=== PATIENT | female | born 1960 | race Caucasian/White ===

== ENCOUNTER 2017-08-19 18:00 | Emergency (ER) | payer OTHER, MEDICARE ==
[~2017-08-19 18:00] MED LIST: CHOLESTEROL MED; CITA20 PO; DIAZ5 PO; HYDR10SO PO; LEVO50TA4 PO; SOMA350T PO; TEMA15 PO
[2017-08-19 18:16] VITALS: BP 183/81; PULSE 87; RESP 18; TEMP 97.9; O2SAT 95
[2017-08-19] MEDS ORDERED: TRAM-462 PO (18:43)
[2017-08-19] MEDS ORDERED: CELE20TA PO (18:43)
[2017-08-19] MEDS ORDERED: SIMV20TA PO (18:43)
[2017-08-19] MEDS ORDERED: OXYC-103 PO (18:43)
[2017-08-19] MEDS ORDERED: METF500T4 PO (18:43)
[2017-08-19] MEDS ORDERED: LISI-519 PO (18:43)
[2017-08-19] MEDS ORDERED: LOMO2.5T PO (18:43)
[2017-08-19] MEDS ORDERED: KETOROLAC TROMETHAMINE 60 MG/2 ML (IM) VIAL IM ONE (18:45)
[2017-08-19] MEDS ORDERED: ORPHENADRINE INJ 60 MG/2 ML AMP IM ONE (18:45)
--- NOTE | 2017-08-19 19:25 | PD ---
HPI Chief Complaint: Pain: Acute or Chronic Time Seen by Provider: 18:35 Travel History International Travel<30 days: No Contact w/Intl Traveler<30days: No Traveled to known affect area: No History of Present Illness HPI 57-year-old female here with chief complaint of acute on chronic low back pain. Patient is reporting that she has chronic low back pain and progressively over the last several months pain has increased. She reports that she had an MRI done outpatient on . She reports she has tramadol, OxyContin, Soma but she has not been taking them because her not working for her pain. she denies injury. She denies fever, incontinence, saddle anesthesia, paresthesia or weakness in extremities. Pain severity 6/10. Pain is constant. It aggravated by movement and slightly relieved with rest. PFSH Past Medical History Arthritis: No Asthma: No Autoimmune Disease: No Blood Disorders: No Anxiety: Yes Depression: Yes Heart Rhythm Problems: No Cancer: Yes (SKIN) Cardiovascular Problems: No High Cholesterol: No Chemotherapy: No Chest Pain: No Congestive Heart Failure: No COPD: No Cerebrovascular Accident: No Diabetes: No Diminished Hearing: No Endocrine: No Gastrointestinal Disorders: No Genitourinary: Yes (INCONTINENT) Headaches: No Hepatitis: No Hiatal Hernia: No Immune Disorder: No Musculoskeletal: Yes (OSTEOMYLITIS, MRSA COCCYX) Neurologic: No Psychiatric: Yes Reproductive: No Respiratory: No Immunizations Current: Yes Migraines: No Myocardial Infarction: No Radiation Therapy: No Seizures: No Sickle Cell Disease: No Sleep Apnea: No Thyroid Disease: Yes Tetanus Vaccination: Unknown Influenza Vaccination: No ?: Not Menopausal: Yes : 0 Past Surgical History Abdominal Surgery: No AICD: No Arteriovenous Shunt: No Body Medical Devices: LUMBAR SACRAL HARDWARE Cardiac Surgery: No Ear Surgery: No Endocrine Surgery: No Eye Surgery: No Genitourinary Surgery: Yes (KIDNEY STONES) Gynecologic Surgery: Yes (LAPAROSCOPY) Insulin Pump: No Joint Replacement: No Oral Surgery: No Pacemaker: No Thoracic Surgery: No Tonsillectomy: Yes Other Surgery: Yes (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) Social History Alcohol Use: No Tobacco Use: No Substance Use: No Allergies-Medications (Allergen,Severity, Reaction): Coded Allergies: penicillin G (Unverified Allergy, Severe, Anaphylaxis, 08/19/17) strawberry (Unverified Allergy, Severe, Anaphylaxis, 08/19/17) tizanidine (Unverified Allergy, Severe, STOPPED BREATHING, 08/19/17) Reported Meds & Prescriptions Reported Meds & Active Scripts Active Reported Tramadol ER 24 HR (Tramadol HCl) 100 Mg [place] 150 Mg PO DAILY Oxycontin (Oxycodone HCl) 10 Mg Tab 10 Mg PO Q8HR Metformin ER (Metformin HCl) 500 Mg [place] 500 Mg PO BID With evening meal Simvastatin 20 Mg Tab 20 Mg PO DAILY Lisinopril 5 Mg Tab 5 Mg PO BID Lomotil (Diphenoxylate-Atropine) 2.5-0.025 Mg Tab 2 Tab PO Q6H PRN Celexa (Citalopram Hydrobromide) 20 Mg Tab 20 Mg PO DAILY [Cholesterol Med] Review of Systems Except as stated in HPI: all other systems reviewed are Neg Physical Exam Narrative GENERAL: Alert well-appearing female no acute distress. SKIN: Warm and dry. HEAD: Atraumatic. Normocephalic. EYES: Pupils equal and round. No scleral icterus. No injection or drainage. ENT: No nasal bleeding or discharge. Mucous membranes pink and moist. NECK: Trachea midline. No JVD. CARDIOVASCULAR: Regular rate and rhythm. RESPIRATORY: No accessory muscle use. Clear to auscultation. Breath sounds equal bilaterally. GASTROINTESTINAL: Abdomen soft, non-tender, nondistended. Hepatic and splenic margins not palpable. MUSCULOSKELETAL: Extremities without clubbing, cyanosis, or edema. No obvious deformities. BACK: No CVA tenderness. No rash. generalized tenderness to the lumbar spine region. NEUROLOGICAL: Awake and alert. No obvious cranial nerve deficits. Motor grossly within normal limits. Five out of 5 muscle strength in the arms and legs. dorsiflex & plantar flex intact. 2+ DTR. PSYCHIATRIC: Appropriate mood and affect; insight and judgment normal. Data Data Last Documented VS Orders Orders Ketorolac Inj (Toradol Inj) (08/19/17 18:45) Orphenadrine Inj (Norflex Inj) (08/19/17 18:45) MDM Medical Decision Making Medical Screen Exam Complete: Yes Emergency Medical Condition: Yes Differential Diagnosis Acute on chronic low back pain, lumbar strain, herniated disc Narrative Course 57-year-old female here with chief complaint of acute on chronic low back pain. Patient is reporting that she has chronic low back pain and progressively over the last several months pain has increased. She reports that she had an MRI done outpatient on . She reports she has tramadol, OxyContin, Soma but she has not been taking them because her not working for her pain. She has a normal neurologic exam. She is reporting midline thoracic and lumbar pain. She is afebrile, she denies incontinence, no saddle anesthesia, no paresthesia or weakness in the extremities. Patient was given a shot of Toradol and Norflex in the emergency department and observed. She will be discharged home with instructions to take NSAIDs. Diagnosis Primary Impression: Low back pain Qualified Codes: M54.40 - Lumbago with sciatica, unspecified side Referrals: Kwan Mims MD, William B. MD Orthopedist Pain Management Primary Care Physician Additional Instructions: Take medications as prescribed. Avoid heavy lifting or strenuous activity. Call tomorrow morning to speak with her pain management doctor regarding her continued pain. Disposition: 01 DISCHARGE HOME Condition: Stable Rosy Dawn Aug 19, 2017 19:25
== END 2017-08-19 20:25 | disposition home or self-care (01) ==
LOC: PHEFT 18:00
DX: M54.40 Lumbago with sciatica, unspecified side (principal); Z87.39 Personal history of other diseases of the musculoskeletal system and connective tissue; E07.9 Disorder of thyroid, unspecified; X58.XXXA Exposure to other specified factors, initial encounter; Y99.0 Civilian activity done for income or pay
CPT/HCPCS: 96372; 99284; J1885; J2360